=== PATIENT | female | born 1975 | race Caucasian/White ===

== ENCOUNTER 2020-10-12 07:41 | Outpatient (CLI) | payer OTHER | END 2020-10-12 07:42 | disposition home or self-care (01) | LOC: NM 07:41 | PROVIDERS: ATTEND Internal Medicine Gastroenterology | DX: R10.11 Right upper quadrant pain (principal); K58.9 Irritable bowel syndrome, unspecified; K90.49 Malabsorption due to intolerance, not elsewhere classified; Z88.9 Allergy status to unspecified drugs, medicaments and biological substances | CPT/HCPCS: 78227; A9537 ==

== ENCOUNTER 2020-10-12 15:29 | Outpatient (CLI) | payer OTHER | END 2020-10-12 15:30 | disposition home or self-care (01) | LOC: SCSRAD 15:29 | PROVIDERS: ATTEND Family Medicine | DX: M54.6 Pain in thoracic spine (principal) | CPT/HCPCS: 72072 ==

== ENCOUNTER 2020-11-04 08:25 | Outpatient (CLI) | payer OTHER | END 2020-11-04 08:26 | disposition home or self-care (01) | LOC: TBSIIMAG 08:25 | PROVIDERS: ATTEND Specialist | DX: M54.14 Radiculopathy, thoracic region (principal) | CPT/HCPCS: 72146 ==